=== PATIENT | male | born 1940 | race Caucasian/White ===

== ENCOUNTER 2018-08-04 12:50 | Outpatient (REF) | payer MEDICARE, SELFPAY ==
[2018-08-04 19:00] LABS: HCT 33.1 % (40.0-50.0); HGB 11.1 g/dL (13.5-17.5); Mean Corp. HGB Concentration 33.5 g/dL (32.0-36.0); Mean Corpuscular Hemoglobin 35.5 pg (27.0-33.0); Mean Corpuscular Volume 105.8 fL (80-95); Mean Platelet Volume 10.5 fL (8.0-11.0); Platelet Count 173 x1000/uL (130-400); RBC 3.13 m/cumm (4.50-6.00); RBC Distribution Width 15.5 % (11.8-14.1); White Blood Cell Count 8.56 k/cumm (4.4-10.8)
[2018-08-04 19:11] LABS: Albumin 3.8 g/dL (3.4-5.0); Anion Gap 9.2 mmol/L (3-11); BUN 29 mg/dL (7-18); CO2 29.8 mmol/L (21.0-32.0); CREATININE 1.73 mg/dL (0.70-1.30); Calcium 8.6 mg/dL (8.5-10.1); Chloride 100 mmol/L (98-107); Estimated GFR 38.39 (mL/min/1.73m2); Glucose 115 mg/dL (70-100); PHOSPHORUS 3.7 mg/dL (2.6-4.7); Potassium 4.2 mmol/L (3.5-5.1); Sodium 139 mmol/L (136-145)
== END 2018-08-04 13:10 ==
LOC: NCHCN 12:50
PROVIDERS: PCP Internal Medicine; Visit Provider Internal Medicine
DX: L60.0 Ingrowing nail (principal); G60.9 Hereditary and idiopathic neuropathy, unspecified; N18.3 Chronic kidney disease, stage 3 (moderate)
CPT/HCPCS: 80069; 85027; 84443

== ENCOUNTER 2019-07-03 13:36 | Outpatient (REF) | payer MEDICARE, SELFPAY ==
[2019-07-03 19:32] LABS: HCT 30.2 % (40.0-50.0); HGB 9.6 g/dL (13.5-17.5); Mean Corp. HGB Concentration 31.8 g/dL (32.0-36.0); Mean Corpuscular Volume 113.1 fL (80-95); Mean Platelet Volume 11.2 fL (8.0-11.0); Platelet Count 166 x1000/uL (130-400); RBC 2.67 m/cumm (4.50-6.00); RBC Distribution Width 16.3 % (11.8-14.1); White Blood Cell Count 7.56 k/cumm (4.4-10.8)
[2019-07-03 19:36] LABS: Albumin 3.9 g/dL (3.4-5.0); Anion Gap 8.4 mmol/L (3-11); BUN 22 mg/dL (7-18); CO2 30.6 mmol/L (21.0-32.0); CREATININE 1.93 mg/dL (0.70-1.30); Calcium 8.6 mg/dL (8.5-10.1); Chloride 101 mmol/L (98-107); Estimated GFR 33.75 (mL/min/1.73m2); Glucose 88 mg/dL (70-100); PHOSPHORUS 3.9 mg/dL (2.6-4.7); Potassium 4.7 mmol/L (3.5-5.1); Sodium 140 mmol/L (136-145)
[2019-07-03 19:56] LABS: Digoxin 1.14 ng/mL (0.90-2.00)
== END 2019-07-03 13:56 ==
LOC: NCHCN 13:36
PROVIDERS: PCP Internal Medicine; Visit Provider Internal Medicine
DX: E11.9 Type 2 diabetes mellitus without complications (principal); I48.91 Unspecified atrial fibrillation; Z79.899 Other long term (current) drug therapy; G60.9 Hereditary and idiopathic neuropathy, unspecified; J45.20 Mild intermittent asthma, uncomplicated; Z51.81 Encounter for therapeutic drug level monitoring
CPT/HCPCS: 80069; 85027; 80162

== ENCOUNTER 2019-07-07 09:18 | Outpatient (REF) | payer MEDICARE, SELFPAY ==
[2019-07-07 19:28] LABS: Ferritin 242 ng/mL (8-388); Folate 17.5 ng/mL (8.6-20.0)
[2019-07-07 19:30] LABS: Vitamin B12 < 80 pg/mL (193-986)
[2019-07-07 19:39] LABS: Iron 86 ug/dL (50-175); Total Iron Binding Capacity 278 ug/dL (250-450); Transferrin Sat 31 % (20-55)
[2019-07-07 19:47] LABS: COMMENT (LAB VIEW ONLY) 140.85 mg/dL; Microalb ug/mg Crea 14.6 ug/mg Cr
== END 2019-07-07 09:38 ==
LOC: NCHCN 09:18
PROVIDERS: PCP Internal Medicine; Visit Provider Internal Medicine
DX: D64.9 Anemia, unspecified (principal); N18.3 Chronic kidney disease, stage 3 (moderate)
CPT/HCPCS: 82043; 82570; 82607; 82728; 82746; 83540; 83550

== ENCOUNTER 2019-09-23 14:47 | Outpatient (REF) | payer MEDICARE, SELFPAY ==
[2019-09-23 20:03] LABS: Prothrombin Time 61.1 sec (9.3-11.0)
[2019-09-23 20:45] LABS: INR 6.4 (0.9-1.1)
== END 2019-09-23 15:07 ==
LOC: NCHCN 14:47
PROVIDERS: PCP Internal Medicine; Visit Provider Internal Medicine
DX: I48.91 Unspecified atrial fibrillation (principal); Z79.01 Long term (current) use of anticoagulants
CPT/HCPCS: 85610

== ENCOUNTER 2019-10-03 07:13 | Outpatient (CLI) | payer MEDICARE, SELFPAY ==
[2019-10-03 09:21] LABS: Prothrombin Time 43.9 sec (9.3-11.0)
[2019-10-03 10:10] LABS: INR 4.5 (0.9-1.1)
== END 2019-10-03 07:33 ==
PROVIDERS: PCP Internal Medicine; Visit Provider Internal Medicine
DX: I48.91 Unspecified atrial fibrillation (principal); Z79.01 Long term (current) use of anticoagulants
CPT/HCPCS: 36415; 85610

== ENCOUNTER 2019-10-06 09:06 | Outpatient (REF) | payer MEDICARE, SELFPAY ==
[2019-10-06 14:09] LABS: ALT 30 U/L (16-63); AST 20 U/L (15-37); Albumin 3.7 g/dL (3.4-5.0); Alkaline Phosphatase 92 U/L (46-116); Anion Gap 11.7 mmol/L (3-11); BUN 31 mg/dL (7-18); CO2 23.3 mmol/L (21.0-32.0); CREATININE 1.89 mg/dL (0.70-1.30); Calcium 8.4 mg/dL (8.5-10.1); Chloride 105 mmol/L (98-107); Estimated GFR 34.58 (mL/min/1.73m2); Glucose 145 mg/dL (74-106); Potassium 4.8 mmol/L (3.5-5.1); Sodium 140 mmol/L (136-145); Total Protein 6.8 g/dL (6.4-8.2)
[2019-10-06 14:14] LABS: INR 3.3 (0.9-1.1); Prothrombin Time 32.1 sec (9.3-11.0)
== END 2019-10-06 09:26 ==
LOC: NCHCN 09:06
PROVIDERS: PCP Internal Medicine; Visit Provider Internal Medicine
DX: I48.91 Unspecified atrial fibrillation (principal); Z79.01 Long term (current) use of anticoagulants; I10 Essential (primary) hypertension; N18.3 Chronic kidney disease, stage 3 (moderate); E11.9 Type 2 diabetes mellitus without complications
CPT/HCPCS: 80053; 85610

== ENCOUNTER 2020-10-06 21:26 | Outpatient (REF) | payer MEDICARE, SELFPAY ==
[2020-10-06 19:49] LABS: HCT 34.4 % (40.0-50.0); HGB 11.2 g/dL (13.5-17.5); MCHC 32.6 % (32.0-36.0); MCV 95.3 fL (80-95); MPV 11.7 fL (8.0-11.0); Platelet Count 204 10^3/uL (130-400); RBC 3.61 10^6/uL (4.36-5.78); RDW 15.8 % (11.8-14.1); RDW-SD 54.7 fL; WBC 8.95 10^3/uL (4.4-10.8)
[2020-10-06 20:20] LABS: ALT 22 U/L (16-63); Albumin 3.9 g/dL (3.4-5.0); Anion Gap 9.2 mmol/L (3-11); BUN 45 mg/dL (7-18); CO2 27.8 mmol/L (21.0-32.0); CREATININE 2.81 mg/dL (0.70-1.30); Calcium 8.9 mg/dL (8.5-10.1); Chloride 102 mmol/L (98-107); Estimated GFR 21.82 (mL/min/1.73m2); Glucose 138 mg/dL (74-106); PHOSPHORUS 3.5 mg/dL (2.6-4.7); Potassium 4.2 mmol/L (3.5-5.1); Sodium 139 mmol/L (136-145)
[2020-10-06 20:36] LABS: LDL CHOLESTEROL 98 mg/dL (<100)
== END 2020-10-06 21:46 ==
LOC: NCHCN 21:26
PROVIDERS: PCP Internal Medicine; Visit Provider Internal Medicine
DX: R25.2 Cramp and spasm (principal); J45.20 Mild intermittent asthma, uncomplicated; N18.30 Chronic kidney disease, stage 3 unspecified; I48.91 Unspecified atrial fibrillation
CPT/HCPCS: 80069; 83721; 85027; 84460

== ENCOUNTER 2020-10-10 09:01 | Outpatient (REF) | payer MEDICARE, SELFPAY ==
[2020-10-21 14:32] LABS: Albumin, Urine % 38 %; Total Protein Urine 15 mg/dL
[2020-10-21 14:34] LABS: Globulins, Urine % See Comments %
[2020-10-21 14:35] LABS: Comment See Comments; Immunotyping, Urine See Comments
== END 2020-10-10 09:21 ==
LOC: NCHCN 09:01
PROVIDERS: PCP Internal Medicine; Visit Provider Internal Medicine
DX: N18.4 Chronic kidney disease, stage 4 (severe) (principal)
CPT/HCPCS: 84156; 84166; 86335

== ENCOUNTER 2021-04-24 15:41 | Outpatient (REF) | payer MEDICARE, SELFPAY ==
[2021-04-24 18:22] LABS: HCT 30.9 % (40.0-50.0); HGB 9.6 g/dL (13.5-17.5); MCH 29.2 pg (27.0-33.0); MCHC 31.1 % (32.0-36.0); MCV 93.9 fL (80-95); MPV 11.1 fL (8.0-11.0); Platelet Count 172 10^3/uL (130-400); RBC 3.29 10^6/uL (4.36-5.78); RDW 16.2 % (11.8-14.1); RDW-SD 55.4 fL; WBC 6.15 10^3/uL (4.4-10.8)
[2021-04-24 18:34] LABS: ALT 15 U/L (16-63); AST 11 U/L (15-37); Albumin 3.3 g/dL (3.4-5.0); Alkaline Phosphatase 92 U/L (46-116); Anion Gap 8.7 mmol/L (3-11); BUN 30 mg/dL (7-18); CO2 28.3 mmol/L (21.0-32.0); CREATININE 2.8 mg/dL (0.70-1.30); Calcium 8.9 mg/dL (8.5-10.1); Chloride 104 mmol/L (98-107); Estimated GFR 21.86 (mL/min/1.73m2); Glucose 135 mg/dL (74-106); Potassium 4.7 mmol/L (3.5-5.1); Sodium 141 mmol/L (136-145); Total Protein 6.5 g/dL (6.4-8.2)
== END 2021-04-24 15:42 | disposition home or self-care (01) ==
LOC: NCHCN 15:41
PROVIDERS: PCP Internal Medicine; Visit Provider Internal Medicine
DX: D64.9 Anemia, unspecified (principal); N18.4 Chronic kidney disease, stage 4 (severe)
CPT/HCPCS: 80053; 85027

== ENCOUNTER 2021-06-02 20:04 | Outpatient (REF) | payer OTHER, SELFPAY ==
[2021-06-02 19:38] LABS: Abs Immature Grans 0.01 10^3/uL (0.0-0.06); Absolute Basophil Count 0.06 10^3/uL (0.0-0.2); Absolute Lymphocyte Count 1.61 10^3/uL (1.2-3.4); Absolute Monocyte Count 0.53 10^3/uL (0.1-0.8); Absolute Neutrophil Count 3.72 10^3/uL (1.2-6.7); Eosinophils % 3.3; HCT 30.9 % (40.0-50.0); HGB 9.7 g/dL (13.5-17.5); Immature Grans % 0.2; Lymphocytes % 26.3; MCHC 31.4 % (32.0-36.0); MCV 92.2 fL (80-95); MPV 12.1 fL (8.0-11.0); Monocytes % 8.6; Neutrophils % 60.6; Nucleated RBC 0 %; Platelet Count 170 10^3/uL (130-400); RBC 3.35 10^6/uL (4.36-5.78); RDW-SD 59.6 fL; WBC 6.13 10^3/uL (4.4-10.8)
[2021-06-02 20:16] LABS: BUN 38 mg/dL (7-18); CREATININE 3.1 mg/dL (0.70-1.30); Calcium 8.7 mg/dL (8.5-10.1); Chloride 103 mmol/L (98-107); Estimated GFR 19.44 (mL/min/1.73m2); Glucose 116 mg/dL (74-106); Potassium 4.5 mmol/L (3.5-5.1); Sodium 141 mmol/L (136-145)
[2021-06-02 21:07] LABS: Vitamin B12 1100 pg/mL (193-986)
== END 2021-06-02 20:05 | disposition home or self-care (01) ==
LOC: NCHCN 20:04
PROVIDERS: PCP Internal Medicine; Visit Provider Physician Assistant
DX: E53.8 Deficiency of other specified B group vitamins (principal); D64.9 Anemia, unspecified
CPT/HCPCS: 80048; 82607; 85025

== ENCOUNTER 2021-07-31 10:29 | Outpatient (REF) | payer OTHER, SELFPAY ==
[2021-07-31 20:40] LABS: Iron 55 ug/dL (65-175); Total Iron Binding Capacity 287 ug/dL (250-450); Transferrin Sat 19 % (20-55)
== END 2021-07-31 10:30 | disposition home or self-care (01) ==
LOC: NCHCN 10:29
PROVIDERS: PCP Internal Medicine; Visit Provider Internal Medicine
DX: D64.9 Anemia, unspecified (principal)
CPT/HCPCS: 83540; 83550

== ENCOUNTER 2021-10-02 18:33 | Outpatient (REF) | payer MEDICARE, SELFPAY ==
[2021-10-02 19:39] LABS: HCT 34.7 % (40.0-50.0); MCH 31.2 pg (27.0-33.0); MCHC 31.7 % (32.0-36.0); MCV 98.3 fL (80-95); MPV 11.3 fL (8.0-11.0); Platelet Count 181 10^3/uL (130-400); RBC 3.53 10^6/uL (4.36-5.78); RDW 14.8 % (11.8-14.1); RDW-SD 53.2 fL; WBC 8.24 10^3/uL (4.4-10.8)
[2021-10-02 20:09] LABS: ALT 20 U/L (16-63); AST 10 U/L (15-37); Albumin 3.9 g/dL (3.4-5.0); Alkaline Phosphatase 115 U/L (46-116); Anion Gap 11.3 mmol/L (3-11); BUN 52 mg/dL (7-18); CO2 26.7 mmol/L (21.0-32.0); CREATININE 2.8 mg/dL (0.70-1.30); Chloride 102 mmol/L (98-107); Estimated GFR 21.86 (mL/min/1.73m2); Glucose 125 mg/dL (74-106); Potassium 4.6 mmol/L (3.5-5.1); Sodium 140 mmol/L (136-145); Total Protein 7.2 g/dL (6.4-8.2)
[2021-10-02 20:17] LABS: Iron 45 ug/dL (65-175); Total Iron Binding Capacity 279 ug/dL (250-450); Transferrin Sat 16 % (20-55)
== END 2021-10-02 18:34 | disposition home or self-care (01) ==
LOC: NCHCN 18:33
PROVIDERS: PCP Internal Medicine; Visit Provider Internal Medicine
DX: I10 Essential (primary) hypertension (principal); D64.9 Anemia, unspecified
CPT/HCPCS: 80053; 85027; 83540; 83550

== ENCOUNTER 2022-06-08 21:01 | Outpatient (REF) | payer MEDICARE, SELFPAY ==
[2022-06-08 18:49] LABS: HGB 10.9 g/dL (13.5-17.5); MCH 32.6 pg (27.0-33.0); MCV 99 fL (80-95); MPV 11.9 fL (8.0-11.0); Platelet Count 155 10^3/uL (130-400); RBC 3.34 10^6/uL (4.36-5.78); RDW 14.6 % (11.8-14.1); RDW-SD 52.4 fL; WBC 8.25 10^3/uL (4.4-10.8)
[2022-06-08 19:02] LABS: Albumin 3.9 g/dL (3.4-5.0); Anion Gap 11.5 mmol/L (3-11); BUN 48 mg/dL (7-18); CO2 26.5 mmol/L (21.0-32.0); CREATININE 2.8 mg/dL (0.70-1.30); Calcium 9.1 mg/dL (8.5-10.1); Chloride 101 mmol/L (98-107); Glucose 108 mg/dL (74-106); LDL CHOLESTEROL 88 mg/dL (<100); Potassium 4.5 mmol/L (3.5-5.1); Sodium 139 mmol/L (136-145)
[2022-06-08 19:23] LABS: PHOSPHORUS 4.4 mg/dL (2.6-4.7)
== END 2022-06-08 21:02 | disposition home or self-care (01) ==
LOC: NCHCN 21:01
PROVIDERS: PCP Internal Medicine; Visit Provider Internal Medicine
DX: I10 Essential (primary) hypertension (principal); N18.4 Chronic kidney disease, stage 4 (severe); D64.9 Anemia, unspecified; I27.81 Cor pulmonale (chronic)
CPT/HCPCS: 80069; 83721; 85027

== ENCOUNTER 2023-06-27 18:46 | Outpatient (REF) | payer MEDICARE, SELFPAY ==
[2023-06-27 19:17] LABS: Abs Immature Grans 0.02 10^3/uL (0.0-0.06); Absolute Basophil Count 0.07 10^3/uL (0.0-0.2); Absolute Eosinophil Count 0.54 10^3/uL (0.0-0.7); Absolute Lymphocyte Count 1.61 10^3/uL (1.2-3.4); Absolute Monocyte Count 0.57 10^3/uL (0.1-0.8); Absolute Neutrophil Count 5.78 10^3/uL (1.2-6.7); Basophils % 0.8; Eosinophils % 6.3; HCT 31.7 % (40.0-50.0); Immature Grans % 0.2; Lymphocytes % 18.7; MCH 31.9 pg (27.0-33.0); MCHC 31.5 % (32.0-36.0); MCV 101 fL (80-95); MPV 11.8 fL (8.0-11.0); Monocytes % 6.6; Neutrophils % 67.4; Platelet Count 156 10^3/uL (130-400); RBC 3.13 10^6/uL (4.36-5.78); RDW 16.7 % (11.8-14.1); RDW-SD 61.8 fL; WBC 8.59 10^3/uL (4.4-10.8)
[2023-06-27 19:24] LABS: Iron 49 ug/dL (65-175); Total Iron Binding Capacity 237 ug/dL (250-450); Transferrin Sat 21 % (20-55)
[2023-06-27 19:34] LABS: BUN 47 mg/dL (7-18); CREATININE 2.2 mg/dL (0.70-1.30); Calcium 9.1 mg/dL (8.5-10.1); Chloride 103 mmol/L (98-107); Estimated GFR 28.99 (mL/min/1.73m2); Ferritin 233 ng/mL (26-388); Glucose 132 mg/dL (74-106); Potassium 4.1 mmol/L (3.5-5.1); Sodium 139 mmol/L (136-145)
== END 2023-06-27 18:47 | disposition home or self-care (01) ==
LOC: NCHCN 18:46
PROVIDERS: PCP Internal Medicine; Visit Provider Internal Medicine
DX: D64.9 Anemia, unspecified (principal); N18.4 Chronic kidney disease, stage 4 (severe); R60.0 Localized edema
CPT/HCPCS: 80048; 82728; 83540; 83550; 85025

== ENCOUNTER 2024-01-06 18:21 | Outpatient (REF) | payer MEDICARE, SELFPAY ==
[2024-01-06 19:35] LABS: HCT 34.3 % (40.0-50.0); MCH 30.9 pg (27.0-33.0); MCHC 32.1 % (32.0-36.0); MCV 96 fL (80-95); MPV 12.1 fL (8.0-11.0); Platelet Count 163 10^3/uL (130-400); RBC 3.56 10^6/uL (4.36-5.78); RDW 15.9 % (11.8-14.1); RDW-SD 56.6 fL
[2024-01-06 19:59] LABS: Anion Gap 10.8 mmol/L (3-11); BUN 62 mg/dL (7-18); CO2 32.2 mmol/L (21.0-32.0); CREATININE 2.3 mg/dL (0.70-1.30); Calcium 9.9 mg/dL (8.5-10.1); Chloride 93 mmol/L (98-107); Estimated GFR 27.32 (mL/min/1.73m2); Glucose 151 mg/dL (74-106); NT-proBNP 5798 pg/mL (<300); Potassium 3.5 mmol/L (3.5-5.1); Sodium 136 mmol/L (136-145)
== END 2024-01-06 18:22 | disposition home or self-care (01) ==
LOC: NCHCN 18:21
PROVIDERS: PCP Internal Medicine; Referring Provider Internal Medicine; Visit Provider Internal Medicine
DX: I42.9 Cardiomyopathy, unspecified (principal)
CPT/HCPCS: 80048; 85027; 83880